=== PATIENT | female | born 1960 | race African-American/Black ===

== ENCOUNTER 2022-12-15 05:26 | Emergency (ER) | payer SELFPAY ==
[~2022-12-15] VITALS: Ht 157.5 cm; Wt 7.4 kg
--- NOTE | 2022-12-15 05:38 | NUR ---
PT REFUSING TO BE TRIAGED CURRENTLY, STATING "I'M GONNA NEED SOME TIME, GIRL". THIS RN WILL REVISIT THIS ISSUE
[2022-12-15 05:46] VITALS: BP 149/89; PULSE 81; RESP 16; TEMP 98; O2SAT 99
[2022-12-15] MEDS ORDERED: CEPH-585 PO (06:34)
--- NOTE | 2022-12-15 06:35 | NUR ---
PT ABRUPTLY LEFT ROOM, CHOOSING TO WAIT IN THE LOBBY FOR DISCHARGE PAPERWORK. SHE STATES THAT SHE CANNOT AFFORD ANTIBIOTICS, BUT REFUSES TO ALLOW REGISTRATION STAFF TO ASSIST HER IN OBTAINING MEDICAL.
== END 2022-12-15 06:50 | disposition home or self-care (01) ==
LOC: ER 05:27
DX: L02.212 Cutaneous abscess of back [any part, except buttock and flank] (principal); Z88.2 Allergy status to sulfonamides; Z79.899 Other long term (current) drug therapy
CPT/HCPCS: 99283